=== PATIENT | male | born 1960 | race Caucasian/White ===

== ENCOUNTER 2020-07-14 08:43 | Day surgery (SDC) | payer BC ==
[2020-07-12 10:32] VITALS: BMI 23.6
[~2020-07-14 08:43] MED LIST: LACTATED RINGERS 1,000 ML IV SCH; ONDANSETRON 4 MG/2 ML VIAL IVP PRN
--- NOTE | 2020-07-14 09:16 | P.GSHP ---
History of Present Illness H&P Date: 07/14/20 CHIEF COMPLAINT: Colon screen HISTORY OF PRESENT ILLNESS: The patient is a 60-year-old female who presents for colon screen. Lower endoscopy was offered for further evaluation and management. PAST MEDICAL HISTORY: Please see list. PAST SURGICAL HISTORY: Please see list. MEDICATIONS: Please see list. ALLERGIES: Please see list. SOCIAL HISTORY: No illicit drug use FAMILY HISTORY: No reports of Crohn disease or ulcerative colitis. REVIEW OF ORGAN SYSTEMS: CONSTITUTIONAL: No reports of fevers or chills. PHYSICAL EXAM: VITAL SIGNS: Stable GENERAL: Well-developed pleasant in no acute distress. HEENT: No scleral icterus. Extraocular movements grossly intact. Moist buccal mucosa. NECK: Supple without lymphadenopathy. CHEST: Unlabored respirations. Equal bilateral excursions. CARDIOVASCULAR: Regular rate and rhythm. Distal 2+ pulses. ABDOMEN: Soft, nontender, nondistended. MUSCULOSKELETAL: No clubbing, cyanosis, or edema. ASSESSMENT: 1. Colon screen. PLAN: 1. Recommend proceeding with a lower endoscopy Past Medical History Past Medical History: Eye Disorder, GERD/Reflux, Hyperlipidemia, Osteoarthritis (OA) Additional Past Medical History / Comment(s): HX GLAUCOMA, HX COLON POLYPS History of Any Multi-Drug Resistant Organisms: None Reported Past Surgical History: Cholecystectomy, Hernia Repair, Orthopedic Surgery Additional Past Surgical History / Comment(s): LASER EYE SURGERY (GLAUCOMA). rt shoulder rotator cuff repair, colonoscopy Past Anesthesia/Blood Transfusion Reactions: No Reported Reaction Smoking Status: Current every day smoker - Past Family History Mother Family Medical History: AICD/Pacemaker, Coronary Artery Disease (CAD), Hyperlipidemia, Hypertension Additional Family Medical History / Comment(s): PACEMAKER-CARDIAC BYPASS SURGERY Father Family Medical History: Cancer Additional Family Medical History / Comment(s): LOW BLOOD SUGAR, Medications and Allergies Home Medications Medication Instructions Recorded Confirmed Type Pantoprazole Sodium 40 mg PO QAM 04/27/14 07/12/20 History Aspirin 81 mg PO DAILY 07/12/20 07/12/20 History Cholecalciferol [Vitamin D3 (25 2,000 unit PO DAILY 07/12/20 07/12/20 History Mcg = 1000 Iu)] Glucos Sul 2Kcl/MSM/Chond/C/Mn 1 each PO DAILY 07/12/20 07/12/20 History [Glucosamine Chondroitin Cap] [place]-3/Dha/Epa/Fish Oil [Fish Oil 1 each PO DAILY 07/12/20 07/12/20 History 500 mg Softgel] Potassium Gluconate 99 mg PO DAILY 07/12/20 07/12/20 History Rosuvastatin [Crestor] 20 mg PO DAILY 07/12/20 07/12/20 History calcium polycarbophiL [Fibercon] 625 mg PO DAILY 07/12/20 07/12/20 History Allergies Allergy/AdvReac Type Severity Reaction Status Date / Time No Known Allergies Allergy Verified 07/12/20 10:19
[2020-07-14 09:40] VITALS: TEMP 98
[2020-07-14] MEDS ORDERED: PROPOFOL 10 MG/ML 20 ML VIAL IV ONE (10:26)
[2020-07-14 11:06] VITALS: BP 95/62; PULSE 81; RESP 12
--- NOTE | 2020-07-14 11:07 | P.PCN ---
Date of Procedure: 07/14/20 Description of Procedure: PREOPERATIVE DIAGNOSIS: History of colon polyps POSTOPERATIVE DIAGNOSIS: Rectal polyp Appendiceal polyp OPERATION: Colonoscopy to the cecum, ileocecal valve and appendiceal orifice Colonoscopy with cold forceps biopsy SURGEON: Delaney King MD. ANESTHESIA: MAC. INDICATIONS: The patient is a 60-year-old male who presents for colonoscopy screening. Last colonoscopy 5 years ago. Benefits and risks were described and informed consent was obtained. DESCRIPTION OF PROCEDURE: The patient had undergone Gatorade, MiraLAX and Dulcolax prep. He had been brought into the operating room and laid in the left lateral decubitus position. After adequate intravenous sedation, the rectum was examined with 2% lidocaine jelly. No external hemorrhoids were encountered. The rectal tone was within normal limits. No lesions were palpated in the rectal vault. An Olympus colonosc ope was advanced until the cecum, ileocecal valve and appendiceal orifice were clearly viewed. The prep was fair. No scattered diverticulosis was encountered. Colonic polyps removed using cold forceps. No evidence of focal colitis was found. Retroflexion of the scope demonstrated grade 1 internal hemorrhoids without active bleeding or inflammation. The colon was desufflated. The patient had tolerated the procedure well. Withdrawal time was over 6 minutes. FINDINGS: Aronchick preparation quality scale 2 (1-5) Internal hemorrhoids, grade 1 No external prolapsed hemorrhoids. No arteriovenous malformations. Removal of 2 polyps: -Cold forceps biopsy at 10 cm from the anal verge, 4 mm polyp, rectum -Cold forceps biopsy and appendiceal orifice, 4 mm polyp No focal colitis. RECOMMENDATIONS: Lower endoscopy in 3 years, 2022 Plan - Discharge Summary Discharge Rx Participant: No New Discharge Prescriptions: Continue Pantoprazole Sodium 40 mg PO QAM Cholecalciferol [Vitamin D3 (25 Mcg = 1000 Iu)] 2,000 unit PO DAILY Aspirin 81 mg PO DAILY calcium polycarbophiL [Fibercon] 625 mg PO DAILY Rosuvastatin [Crestor] 20 mg PO DAILY Potassium Gluconate 99 mg PO DAILY [place]-3/Dha/Epa/Fish Oil [Fish Oil 500 mg Softgel] 1 each PO DAILY Glucos Sul 2Kcl/MSM/Chond/C/Mn [Glucosamine Chondroitin Cap] 1 each PO DAILY Discharge Medication List Pantoprazole Sodium 40 mg PO QAM 04/27/14 [History] Aspirin 81 mg PO DAILY 07/12/20 [History] Cholecalciferol [Vitamin D3 (25 Mcg = 1000 Iu)] 2,000 unit PO DAILY 07/12/20 [History] Glucos Sul 2Kcl/MSM/Chond/C/Mn [Glucosamine Chondroitin Cap] 1 each PO DAILY 07/12/20 [History] [place]-3/Dha/Epa/Fish Oil [Fish Oil 500 mg Softgel] 1 each PO DAILY 07/12/20 [History] Potassium Gluconate 99 mg PO DAILY 07/12/20 [History] Rosuvastatin [Crestor] 20 mg PO DAILY 07/12/20 [History] calcium polycarbophiL [Fibercon] 625 mg PO DAILY 07/12/20 [History] Follow up Appointment(s)/Referral(s): Delaney King MD [STAFF PHYSICIAN] - As Needed Patient Instructions/Handouts: Colorectal Polyps (DC) Activity/Diet/Wound Care/Special Instructions: Repeat colonoscopy in 3 years, 2022 Discharge Disposition: HOME SELF-CARE
== END 2020-07-14 11:59 | disposition home or self-care (01) ==
LOC: ORWHC2ENDO 08:43
PROVIDERS: ATTEND Surgery Plastic and Reconstructive Surgery
DX: Z12.11 Encounter for screening for malignant neoplasm of colon (principal); K63.5 Polyp of colon; D12.1 Benign neoplasm of appendix; K64.0 First degree hemorrhoids; K21.9 Gastro-esophageal reflux disease without esophagitis; E78.5 Hyperlipidemia, unspecified; M19.90 Unspecified osteoarthritis, unspecified site; Z86.69 Personal history of other diseases of the nervous system and sense organs; Z90.49 Acquired absence of other specified parts of digestive tract; Z98.890 Other specified postprocedural states; F17.200 Nicotine dependence, unspecified, uncomplicated; Z82.49 Family history of ischemic heart disease and other diseases of the circulatory system; Z83.438 Family history of other disorder of lipoprotein metabolism and other lipidemia; Z80.9 Family history of malignant neoplasm, unspecified; Z84.89 Family history of other specified conditions; Z79.82 Long term (current) use of aspirin; Z79.899 Other long term (current) drug therapy
CPT/HCPCS: 88305; 45380; J2704

== ENCOUNTER 2023-09-26 06:29 | Day surgery (SDC) | payer BC, MEDICARE ==
[~2023-09-26 06:29] MED LIST changes: +LIDOCAINE 1% (10MG/ML) FOR IV START INTRADERMA PRN; -ONDANSETRON 4 MG/2 ML VIAL IVP PRN
[2023-09-26] MEDS ORDERED: PROPOFOL 10 MG/ML 20 ML VIAL IV ONE (07:30)
[2023-09-26 07:35] VITALS: RESP 16; TEMP 97
--- NOTE | 2023-09-26 07:38 | P.GSHP ---
History of Present Illness H&P Date: 09/26/23 CHIEF COMPLAINT: Colon screen HISTORY OF PRESENT ILLNESS: The patient is a 63-year-old male who presents for colon screen. Lower endoscopy was offered for further evaluation and management. PAST MEDICAL HISTORY: Please see list. PAST SURGICAL HISTORY: Please see list. MEDICATIONS: Please see list. ALLERGIES: Please see list. SOCIAL HISTORY: No illicit drug use FAMILY HISTORY: No reports of Crohn disease or ulcerative colitis. REVIEW OF ORGAN SYSTEMS: CONSTITUTIONAL: No reports of fevers or chills. PHYSICAL EXAM: VITAL SIGNS: Stable GENERAL: Well-developed pleasant in no acute distress. HEENT: No scleral icterus. Extraocular movements grossly intact. Moist buccal mucosa. NECK: Supple without lymphadenopathy. CHEST: Unlabored respirations. Equal bilateral excursions. CARDIOVASCULAR: Regular rate and rhythm. Distal 2+ pulses. ABDOMEN: Soft, nontender, nondistended. MUSCULOSKELETAL: No clubbing, cyanosis, or edema. ASSESSMENT: 1. Colon screen. PLAN: 1. Recommend proceeding with a lower endoscopy Past Medical History Past Medical History: Eye Disorder, GERD/Reflux, Hyperlipidemia, Osteoarthritis (OA) Additional Past Medical History / Comment(s): HX GLAUCOMA, HX COLON POLYPS History of Any Multi-Drug Resistant Organisms: None Reported Past Surgical History: Cholecystectomy, Hernia Repair, Orthopedic Surgery Additional Past Surgical History / Comment(s): LASER EYE SURGERY (GLAUCOMA). rt shoulder rotator cuff repair, colonoscopy Past Anesthesia/Blood Transfusion Reactions: No Reported Reaction Smoking Status: Current every day smoker - Past Family History Mother Family Medical History: AICD/Pacemaker, Coronary Artery Disease (CAD), Hyperlipidemia, Hypertension Additional Family Medical History / Comment(s): PACEMAKER-CARDIAC BYPASS SURGERY Father Family Medical History: Cancer Additional Family Medical History / Comment(s): LOW BLOOD SUGAR, Medications and Allergies Home Medications Medication Instructions Recorded Confirmed Type Pantoprazole Sodium 40 mg PO QAM 04/27/14 09/26/23 History Aspirin 81 mg PO DAILY 07/12/20 09/26/23 History Cholecalciferol [Vitamin D3 (25 2,000 unit PO DAILY 07/12/20 09/26/23 History Mcg = 1000 Iu)] Glucos Sul 2Kcl/MSM/Chond/C/Mn 1 each PO DAILY 07/12/20 09/26/23 History [Glucosamine Chondroitin Cap] [place]-3/Dha/Epa/Fish Oil [Fish Oil 1 each PO DAILY 07/12/20 09/26/23 History 500 mg Softgel] Potassium Gluconate [Potassium 99 mg PO DAILY 07/12/20 09/26/23 History Gluconate ER] Rosuvastatin [Crestor] 20 mg PO DAILY 07/12/20 09/26/23 History calcium polycarbophiL [Fibercon] 625 mg PO DAILY 07/12/20 09/26/23 History Latanoprost Ophth [Xalatan 0.005%] 1 drops LEFT EYE HS 09/21/23 09/26/23 History Allergies Allergy/AdvReac Type Severity Reaction Status Date / Time No Known Allergies Allergy Verified 09/26/23 07:19 Surgical - Exam Vital Signs Temp Pulse Resp BP Pulse Ox 97 F L 75 16 137/70 95 09/26/23 07:18 09/26/23 07:18 09/26/23 07:18 09/26/23 07:18 09/26/23 07:18
--- NOTE | 2023-09-26 08:17 | P.PCN ---
Date of Procedure: 09/26/23 Description of Procedure: PREOPERATIVE DIAGNOSIS: Personal history of colon polyps Colonoscopy screening POSTOPERATIVE DIAGNOSIS: Tubular adenoma rectum Sigmoid diverticulosis OPERATION: Colonoscopy to the ileocecal valve and appendiceal orifice, cecum Colonoscopy with cold forceps biopsy SURGEON: Delaney King MD. ANESTHESIA: MAC. INDICATIONS: The patient is an 63-year-old male who presents personal history of colon polyps. Last colonoscopy 5 years. Benefits and risks were described and informed consent was obtained. DESCRIPTION OF PROCEDURE: The patient had undergone Sutab prep. The patient had been brought into the operating room and laid in the left lateral decubitus position. After adequate intravenous sedation, the rectum was examined with 2% lidocaine jelly. The prostate fossa was unremarkable. External hemorrhoids were encountered. The rectal tone was within normal limits. No lesions were palpated in the rectal vault. An Olympus colonoscope was advanced until the cecum, ileocecal valve and appendiceal orifice were clearly viewed. The prep was good Sigmoid divert iculosis was encountered. Colonic polyps were found and removed. No evidence of focal colitis was found. Retroflexion of the scope demonstrated grade 2 internal hemorrhoids without active bleeding or inflammation. The colon was desufflated. The patient had tolerated the procedure well. Withdrawal time was over 6 minutes. FINDINGS: Aronchick preparation quality scale 1+ (1-5) Internal hemorrhoids, grade 2 No external hemorrhoids No arteriovenous malformations. Sigmoid diverticulosis Removal of 2 polyps: - Cold forceps biopsy at 10 cm from the anal verge x 2, 3 to 4 mm polyps. No focal colitis. RECOMMENDATIONS: Repeat colonoscopy in 3 years, 2025 Plan - Discharge Summary Discharge Rx Participant: No New Discharge Prescriptions: Continue Pantoprazole Sodium 40 mg PO QAM Cholecalciferol [Vitamin D3 (25 Mcg = 1000 Iu)] 2,000 unit PO DAILY Aspirin 81 mg PO DAILY calcium polycarbophiL [Fibercon] 625 mg PO DAILY Rosuvastatin [Crestor] 20 mg PO DAILY Potassium Gluconate [Potassium Gluconate ER] 99 mg PO DAILY [place]-3/Dha/Epa/Fish Oil [Fish Oil 500 mg Softgel] 1 each PO DAILY Glucos Sul 2Kcl/MSM/Chond/C/Mn [Glucosamine Chondroitin Cap] 1 each PO DAILY Latanoprost Ophth [Xalatan 0.005%] 1 drops LEFT EYE HS Discharge Medication List Pantoprazole Sodium 40 mg PO QAM 04/27/14 [History] Aspirin 81 mg PO DAILY 07/12/20 [History] Cholecalciferol [Vitamin D3 (25 Mcg = 1000 Iu)] 2,000 unit PO DAILY 07/12/20 [History] Glucos Sul 2Kcl/MSM/Chond/C/Mn [Glucosamine Chondroitin Cap] 1 each PO DAILY 07/12/20 [History] [place]-3/Dha/Epa/Fish Oil [Fish Oil 500 mg Softgel] 1 each PO DAILY 07/12/20 [History] Potassium Gluconate [Potassium Gluconate ER] 99 mg PO DAILY 07/12/20 [History] Rosuvastatin [Crestor] 20 mg PO DAILY 07/12/20 [History] calcium polycarbophiL [Fibercon] 625 mg PO DAILY 07/12/20 [History] Latanoprost Ophth [Xalatan 0.005%] 1 drops LEFT EYE HS 09/21/23 [History] Follow up Appointment(s)/Referral(s): Delaney King MD [STAFF PHYSICIAN] - As Needed Patient Instructions/Handouts: Diverticulosis (GEN), Colorectal Polyps (GEN), Diverticulosis Diet (GEN) Activity/Diet/Wound Care/Special Instructions: Repeat colonoscopy in 3 years, 2025 Discharge Disposition: HOME SELF-CARE
[2023-09-26 08:36] VITALS: BP 121/81; PULSE 61
== END 2023-09-26 08:34 | disposition home or self-care (01) ==
LOC: ORWHC2ENDO 06:29
PROVIDERS: ATTEND Surgery Plastic and Reconstructive Surgery
DX: Z12.11 Encounter for screening for malignant neoplasm of colon (principal); D12.8 Benign neoplasm of rectum; K57.30 Diverticulosis of large intestine without perforation or abscess without bleeding; K64.4 Residual hemorrhoidal skin tags; K64.1 Second degree hemorrhoids; E78.5 Hyperlipidemia, unspecified; M19.90 Unspecified osteoarthritis, unspecified site; K21.9 Gastro-esophageal reflux disease without esophagitis; F17.200 Nicotine dependence, unspecified, uncomplicated; Z86.010 Personal history of colon polyps; Z90.49 Acquired absence of other specified parts of digestive tract; Z98.890 Other specified postprocedural states; Z83.49 Family history of other endocrine, nutritional and metabolic diseases; Z82.49 Family history of ischemic heart disease and other diseases of the circulatory system; Z79.82 Long term (current) use of aspirin; Z79.899 Other long term (current) drug therapy
CPT/HCPCS: 88305; 45380; J2704